=== PATIENT | male | born 1950 | race Caucasian/White ===

== ENCOUNTER → 2022-12-15 | Outpatient (CLI) | payer MEDICARE, SELFPAY ==
--- NOTE | 2022-12-15 17:20 | RAD_ITS ---
STUDY: X-RAY - ORBITS REASON FOR EXAM: Male, 72 years old. HX METAL TO EYE TECHNIQUE: 2 view(s) of the orbits were obtained. COMPARISON: None. FINDINGS: Normal bilateral orbits without a metallic orbital foreign body. Normal visualized facial bones. Normal paranasal sinuses. The soft tissue structures are unremarkable. RAD/Orbits for Foreign Body IMPRESSION: No demonstrated metallic orbital foreign body. The patient is cleared for an MRI examination. Electronically Signed: Ezra Madera MD at 18:18 EST ,
--- NOTE | 2022-12-15 18:10 | MRI_ITS ---
STUDY: MR PELVIS WITH T WITHOUT CONTRAST REASON FOR EXAM: Male, 72 years old. Elevated PSA. Negative biopsies. No pain. No previous imaging. TECHNIQUE: Standardized fat and water weighted pulse sequences were obtained in all 3 orthogonal planes, pre-and post contrast administration. IV 15ML CLARISCAN was administered for the contrast portion of the examination. COMPARISON: None. FINDINGS: The prostate measures 6.87 x 5.41 x 5.62 cm with a volume of 104.4 mL the peripheral zone is thin. There is no evidence for abnormal signal on diffusion-weighted imaging or ADC mapping. This appears uniformly equal in signal intensity on T2-weighted imaging consistent with a PI-RADS Category 1, very low (clinically significant cancers highly unlikely to be present) no abnormal contrast enhancement. The transition zone is heterogenous on T2-weighted imaging with areas of both low and higher signal intensity. This is arranged in a nodular formation. This appears to be fairly uniform in density and ADC mapping. Diffusion-weighted imaging suggesting BPH BI-RADS Category 2 low (clinically significant cancer is unlikely to be present). No abnormal contrast enhancement. Trabeculation of the urinary bladder wall without mass or filling defect.. Normal visualized small intestine. Normal visualized colon. There is no pelvic fluid. There is no pelvic mass lesion or lymphadenopathy. Normal visualized pelvic arteries. There is no evidence of metastatic disease. 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 Normal abdominal wall. MRI/Pelvis W/WO Contrast IMPRESSION: Enlarged prostate. There is evidence of BPH in the transitional zone. There is no finding suggestive of cancer in the peripheral zone. Electronically Signed: Arian Verduzco DO at 22:10 EST ,
[2022-12-15 18:30] LABS: CREATININE FINGERSTICK < 0.9 mg/dL (0.70-1.30); EGFR FINGERSTICK > 60.0000 mL/min (>60)
== END | disposition home or self-care (01) ==
PROVIDERS: PCP Family Medicine; Visit Provider Urology
DX: R97.20 Elevated prostate specific antigen [PSA] (principal)
CPT/HCPCS: 70030; 72197; A9575